=== PATIENT | male | born 1960 | race Caucasian/White ===

== ENCOUNTER 2019-09-25 03:05 | Emergency (ER) | payer MEDICARE ==
[~2019-09-25] VITALS: Ht 182.9 cm; Wt 86.2 kg
[2019-09-25 03:18] VITALS: BP_SYST 132
--- NOTE | 2019-09-25 04:15 | NUR ---
PT TO BED 2. IN [facility] SIDE RAILS UP AND PT IS ALERT AND ORIENTED. ABLE TO COMMUNICATE NEEDS. LEFT HAND LACERATION/ SKIN TEAR NOTED.
--- NOTE | 2019-09-25 04:30 | NUR ---
ER Dr. BONNER at bedside examining patient.
--- NOTE | 2019-09-25 04:59 | NUR ---
Site to LEFT HAND cleansed with BETADINE AND SALINE. Site measures approximately 10CM. DSD dressing applied. Tetanus vaccination current.
[2019-09-25] MEDS ORDERED: LIDOCAINE 1% 10 MG/ML, 20 ML MDV INJ ONE (05:00)
--- NOTE | 2019-09-25 07:15 | NUR ---
[facility]. SPOKE TO NAMAN AND TOLD HER THAT HE WILL COME BACK BLS.
--- NOTE | 2019-09-25 08:21 | NUR ---
Spoke with [place] regarding pt transport. Informed BLS transport [id number]
[2019-09-25 08:37] VITALS: BP_SYST 156
--- NOTE | 2019-09-25 08:39 | NUR ---
Patient given written and verbal discharge instructions and verbalizes understanding. ER MD discussed with patient the results and treatment provided. Patient in stable condition. ID arm band removed. Patient educated on pain management and to follow up with PMD. Pain Scale 0/10. Opportunity for questions provided and answered. Medication side effect fact sheet provided.
== END 2019-09-25 08:37 | disposition home or self-care (01) ==
LOC: SED 03:05
DX: S61.412A Laceration without foreign body of left hand, initial encounter (principal); I10 Essential (primary) hypertension; W45.8XXA Other foreign body or object entering through skin, initial encounter; Y93.89 Activity, other specified; Y92.89 Other specified places as the place of occurrence of the external cause; Y99.8 Other external cause status
CPT/HCPCS: 12004; 99283; J2001